=== PATIENT | male | born 1950 | race Caucasian/White ===

== ENCOUNTER 2020-01-19 07:27 | Observation (INO) | payer MEDICARE, BC ==
[2020-01-17 09:52] VITALS: BMI 25.0
[2020-01-19] MEDS ORDERED: HEPARIN SODIUM,PORCINE 5,000 UNIT/ML 1 ML VIAL SQ ONE (08:01)
[2020-01-19] MEDS: LACTATED RINGERS 1,000 ML IV SCH (08:05)
[2020-01-19] MEDS ORDERED: LIDOCAINE 1% (10MG/ML) FOR IV START INTRADERMA ONE ×2 (08:05)
[2020-01-19] MEDS ORDERED: fentaNYL (PF) 50 MCG/ML 2 ML AMP IV PRN (08:12)
[2020-01-19] MEDS ORDERED: HYDROmorphone 0.5 MG/0.5 ML SYRINGE IVP PRN (08:12)
[2020-01-19 08:24] LABS: Basophils % (A) 0 %; Eosinophils # (A) 0.1 k/uL (0-0.7); Eosinophils % (A) 2 %; HCT 47.7 % (39.0-53.0); HGB 15.6 gm/dL (13.0-17.5); Lymphocytes # (A) 1.4 k/uL (1.0-4.8); Lymphocytes % (A) 24 %; MCH 29.4 pg (25.0-35.0); MCHC 32.7 g/dL (31.0-37.0); Mean Platelet Volume 8.6; Monocytes # (A) 0.4 k/uL (0-1.0); Monocytes % (A) 7 %; Neutrophils # (A) 3.8 k/uL (1.3-7.7); Neutrophils % (A) 66 %; Platelet Count 198 k/uL (150-450); WBC 5.8 k/uL (3.8-10.6)
[2020-01-19] MEDS ORDERED: DEXAMETHASONE SOD PHOSPHATE 10 MG/ML 1 ML VIAL IV ONE (08:25)
[2020-01-19] MEDS: ONDANSETRON 4 MG/2 ML VIAL IVP ONE ×2 (08:25→12:29)
[2020-01-19] MEDS ORDERED: MIDAZOLAM 2 MG/2 ML VIAL IV ONE (08:30)
[2020-01-19 08:39] LABS: Potassium 3.8 mmol/L (3.5-5.1)
[2020-01-19] MEDS ORDERED: GLYCOPYRROLATE 0.2 MG/ML 2 ML VIAL ONE (09:12)
[2020-01-19] MEDS ORDERED: fentaNYL (PF) 50 MCG/ML 2 ML AMP ONE (09:12)
[2020-01-19] MEDS ORDERED: PROPOFOL 10 MG/ML 20 ML VIAL IV ONE (09:12)
[2020-01-19] MEDS ORDERED: MIDAZOLAM 2 MG/2 ML VIAL ONE (09:12)
[2020-01-19] MEDS ORDERED: ePHEDrine SULFATE/0.9% NACL/PF 50 MG/5 ML SYRINGE IV ONE (09:12)
[2020-01-19] MEDS ORDERED: NEOSTIGMINE 1 MG/ML 10 ML VIAL ONE (09:12)
[2020-01-19] MEDS ORDERED: SUCCINYLCHOLINE CHLORIDE 100 MG/5 ML SYR IV ONE (09:12)
[2020-01-19] MEDS ORDERED: HYDROmorphone (PF) 1 MG/ML ONE (09:12)
[2020-01-19] MEDS ORDERED: ROCURONIUM BROMIDE 10 MG/ML 5 ML VIAL IV ONE (09:12)
[2020-01-19] MEDS ORDERED: LIDOCAINE 1% INJ 10MG/ML (20 ML MDV) ONE (09:12)
[2020-01-19] MEDS ORDERED: BUPIVACAINE (PF) 0.25% 30 ML VIAL SQ ONE ×2 (09:51)
[2020-01-19] MEDS ORDERED: KETOROLAC 30 MG/ML 1 ML VIAL IVP PRN (11:41)
[2020-01-19] MEDS ORDERED: HYDROmorphone 1 MG/ML 1 ML SYRINGE IVP PRN (11:41)
[2020-01-19] MEDS ORDERED: ACETAMINOPHEN TAB 325 MG TAB PO PRN (11:41)
[2020-01-19] MEDS ORDERED: ONDANSETRON 4 MG/2 ML VIAL IVP PRN (11:41)
--- NOTE | 2020-01-19 11:41 | P.OP ---
Date of Procedure: 01/19/20 Preoperative Diagnosis: Adenocarcinoma of the prostate Postoperative Diagnosis: Same Procedure(s) Performed: Robotic-assisted laparoscopic bilateral pelvic lymphadenectomy Anesthesia: MARIN Surgeon: Jb Thacker [employer] Qa Tester #1: Jennyfer Woo Estimated Blood Loss (ml): 20 Pathology: other (Bilateral pelvic lymph nodes) Condition: stable Disposition: PACU Indications for Procedure: Patient is a 69-year-old white male with multifocal high-grade prostate cancer within the left peripheral zone. He has elected to undergo a robotic-assisted laparoscopic prostatectomy with bilateral pelvic lymphadenectomy. Operative Findings: Mild bilateral adenopathy is noted. Description of Procedure: The patient was taken in the operating room and placed in the dorsal lithotomy position, with his legs supported in Sanjeev stirrups. He was carefully positioned on a beanbag for stability. The abdomen and external genitalia were prepped and draped sterilely. A Jin catheter was inserted. The Veress needle was passed through the anterior abdominal wall immediately cephalad to the umbilicus, and insufflation was performed to a pressure of 20 mm Hg. Once insufflation was performed, the Veress needle was removed and a supraumbilical incision was made, through which an 8 mm camera port was placed. Under camera guidance, 3 8 mm robotic ports were placed, 2 on the left and one on the right. An additional 12 mm port was placed on the right lateral side for use as an election assistant port. A 5 mm port was placed to the right of the camera port for suction. The patient was placed in Trendelenburg position, and docking was then performed to the da Constantine system utilizing a 4-arm approach. The abdomen was examined. The sigmoid colon was mobilized out of the pelvis. The peritoneum was incised lateral to the medial umbilical ligaments bilaterally, exposing the pubis. The peritoneum was then incised across the midline, allowing the bladder flap to be taken down. The endopelvic fascia was opened bilaterally, and muscular attachments from the urogenital diaphragm were swept away from the prostate. Bilateral extended pelvic lymphadenectomies were performed in the standard fashion. The peritoneal incisions were extended in a cephalad direction, and the vas deferens were divided bilaterally. Margins of dissection were the bifurcation of the iliac vessels proximally, the circumflex iliac vein distally, the genitofemoral nerve laterally, and the obturator nerve medially. A combination of sharp and blunt dissection was used. Care was taken to avoid any neurovascular injury, and the use of monopolar electrocautery was avoided immediately adjacent to neurovascular structures. The lymphatic package was clipped distally. Several mildly enlarged lymph nodes were encountered. There were no complications. Dr. Woo then worked at the console to perform a robotic-assisted laparoscopic prostatectomy, which he will dictate separately. At the completion of the procedure, all sponge and needle counts were correct. The patient tolerated the procedure well was taken to the recovery room in stable condition.
[2020-01-19] MEDS ORDERED: LACTATED RINGERS 1,000 ML IV ONE (11:42)
--- NOTE | 2020-01-19 11:58 | P.OP ---
Date of Procedure: 01/19/20 Preoperative Diagnosis: Prostate cancer Postoperative Diagnosis: Prostate cancer Procedure(s) Performed: Robotic radical prostatectomy Implants: None Anesthesia: MARIN Surgeon: Jennyfer Woo [employer] Cashier Manager #1: Jb Thacker Estimated Blood Loss (ml): 50 IV fluids (ml): 800 Urine output (ml): 150 Pathology: other (prostate and seminal vesicles) Condition: stable Disposition: PACU Indications for Procedure: Unfavorable intermediate risk prostate cancer Operative Findings: #1 large prostate #2 prominent lymph nodes bilaterally Description of Procedure: This is a patient with a history of prostate cancer. The procedure of robot assisted laparoscopic radical prostatectomy was discussed with the patient including the potential risks and complications of the procedure. He elected to proceed with the operation. A nodule was not detected on digital exam under anesthesia.The patient was placed in a supine, Trendelenberg position with adequate padding of the pressure points, shoulders, back, legs and arms. He was then prepped and draped in the standard fashion. A 18F pride catheter was placed to gravity drainage. A Veress needle was placed through a daniel-umbilical puncture and a pneumo-peritoneum created to 20mmHg during port placement which is thereafter lowered to 15mmHg.A 8 mm port on the left side of the umbilicus was placed for the scope. Next,under vision a 8mm robotic ports was placed lateral to each rectus slightly below the camera port. The right certified physician's assistant right iliac fossa 12mm port and right paramedian 5mm port were placed followed by the left iliac fossa 5mm port. The robot was then docked to the 8mm robotic ports and then each robotic arm and tower was checked in relation to the patient's legs and hands to avoid inadvertent compression.The peritoneal cavity was inspected and then an inverted U-shaped incision began laterally to the left medial umbilical ligament and extended high across the midline to the right umbilical ligament. The limbs of the "U" extended to the level of the vasa on both sides. We next developed the preperitoneal space and the space of Retzius. The endopelvic fascia was divided and the levator muscle was reflected off the lateral surface of the prostate. Cautery was used to dissected the bladder away from the prostate. After the anterior bladder neck was incised and the bladder entered the the posterior bladder neck was exposed and the ureteral orifices identified. The posterior bladder neck was then incised and dissected away from the prostate. The bladder neck was noted to be normal and did not require reconstruction. The vas and the seminal vesicles were now exposed and dissected to their insertions into the prostate and were not spared. The posterior layer of the Denonvillier's fascia was incised to enter into the plane between prostate and perirectal fat.Each lateral pedicle was controlled with clips and cautery for hemostasis. Nerve preservation was performed on the right and partial nerve sparing on the left side. The puboprostatic ligament was incised where it inserted into the apex of the prostate and a plane between urethra and dorsal venous complex developed to expose the anterior urethral surface. The anterior wall of the urethra was transected with the scissors a few millimeters distal to the apex of the prostate. DV suture was placed. The freed specimen was then inspected and placed in an endo-catch specimen retrieval bag. The prostate was removed following the completion of the anastomosis. There was attention paid to h emostasis with judicious use of cautery.Two 3-0 V-Lock stitches (MVAC) tied together to form a pledget were used to complete the running continuous circumferential urethrovesical anastamosis with dual layer reconstruction. The outer layer V-Lock suture was placed initially to reapproximate Denonvillier's fascia posteriorly before placing the inner layer MVAC suture as the urethrovesical anastamosis proper. After the inner layer was tied, the anastamosis was checked for leaks before closing the outer layer anteriorly. A new 20 Bulgarian Pride catheter was introduced and inflated to 20cc. The bladder was filled with 250 cc saline, with the balloon to test the integrity of the anastomosis.No leak was identified. The specimen was removed after enlarging the umbilical port incision as required. The umbilical fascia was closed with PDS suture and closed in layers. All ports were closed with a subcuticular stitch. Sponge, instrument, and needle counts were correct at the end of the case. The patient tolerated the procedure well and was accompanied to the recovery room in stable condition
[2020-01-19] MEDS: DEXTROSE 5%-0.45% NACL 1,000 ML IV SCH ×2 (17:12→21:00)
[2020-01-19] MEDS: HEPARIN SODIUM,PORCINE 5,000 UNIT/ML 1 ML VIAL SQ SCH (20:22)
[2020-01-19 20:27] VITALS: TEMP 97.7
[2020-01-20] MEDS: DEXTROSE 5%-0.45% NACL 1,000 ML IV SCH (01:42)
[2020-01-20 05:29] VITALS: BP 187/91; PULSE 80; RESP 16
--- NOTE | 2020-01-20 08:37 | P.DS ---
Providers Expected date of discharge: 01/20/20 Attending physician: Jennyfer Woo Primary care physician: Physician Nonstaff Hospital Course: On the day of admission, the patient underwent an uncomplicated robotic-assisted laparoscopic prostatectomy with bilateral pelvic lymphadenectomy. The perioperative course was unremarkable. On the first postoperative day, the patient tolerated diet. He denied nausea vomiting. He denied chest pain and shortness of breath. He was afebrile with stable vital signs. On examination, the abdomen was soft, and the incisions were clean and dry. The Jin catheter was draining clear yellow urine. Procedures: RALP with bilateral pelvic lymphadenectomy on 01/19/2020. Patient Condition at Discharge: Good Plan - Discharge Summary Discharge Rx Participant: Yes New Discharge Prescriptions: New Ciprofloxacin HCl [Cipro] 250 mg PO Q12HR #6 tablet Hydrocodone/Acetaminophen [Sagola 5-325] 1 - 2 each PO Q4HR PRN #6 tab PRN Reason: Pain No Action Ramipril [Altace] 5 mg PO DAILY Metoprolol Succinate [Toprol XL] 50 mg PO DAILY Allerclear 10 mg PO DAILY Discharge Medication List Allerclear 10 mg PO DAILY 01/17/20 [History] Metoprolol Succinate [Toprol XL] 50 mg PO DAILY 01/17/20 [History] Ramipril [Altace] 5 mg PO DAILY 01/17/20 [History] Ciprofloxacin HCl [Cipro] 250 mg PO Q12HR #6 tablet 01/20/20 [Rx] Hydrocodone/Acetaminophen [Sagola 5-325] 1 - 2 each PO Q4HR PRN #6 tab 01/20/20 [Rx] Follow up Appointment(s)/Referral(s): Jennyfer Woo MD [STAFF PHYSICIAN] - 1 Week Activity/Diet/Wound Care/Special Instructions: Discharge home with Jin catheter. Instruct patient to use overnight drainage bag as well as urinary leg bag. Okay to shower. Diet as tolerated. No lifting, driving, or strenuous activity. Reassure patient that abdominal wall ecchymosis and penoscrotal swelling are normal. Instruct patient to begin taking antibiotics one day prior to Jin catheter removal. Discharge Disposition: HOME SELF-CARE
[2020-01-20] MEDS ORDERED: METOPROLOL SUCCINATE (ER) 50 MG TAB.ER.24H PO SCH (09:00)
[2020-01-20] MEDS ORDERED: LISINOPRIL 20 MG TAB PO SCH (09:00)
[2020-01-20] MEDS: HEPARIN SODIUM,PORCINE 5,000 UNIT/ML 1 ML VIAL SQ SCH (09:55)
== END 2020-01-20 10:39 | disposition home or self-care (01) ==
LOC: OR 07:27 → 5NMEDONC 11:52 → OR 01-20 07:32 → 5NMEDONC 01-20 07:32
PROVIDERS: ADMIT Urology; ATTEND Urology
DX: C61 Malignant neoplasm of prostate (principal); R59.9 Enlarged lymph nodes, unspecified; I10 Essential (primary) hypertension; Z79.899 Other long term (current) drug therapy; Z82.49 Family history of ischemic heart disease and other diseases of the circulatory system
CPT/HCPCS: 55866; 38571; 94760; 86900; 86901; 80051; 85025; 86850; 88307; 88309; G0378; C1762; J2250; J1644 ×2; J1100; J2710; J0690 ×2; J2405; J2001; J3010; J1885; J1170 ×2; J0330; J2704